=== PATIENT | female | born 1945 | race Asian ===

== ENCOUNTER → 2016-08-26 | Outpatient (CLI) | payer MEDICARE | END | disposition disaster alternative care site (69) | LOC: GRAD 08:26 | DX: R10.11 Right upper quadrant pain (principal) ==

== ENCOUNTER → 2016-08-26 | Outpatient (CLI) | payer MEDICARE | END | disposition disaster alternative care site (69) | LOC: GRAD 14:39 | DX: R10.11 Right upper quadrant pain (principal) ==